=== PATIENT | female | born 1975 | race Caucasian/White ===

== ENCOUNTER 2018-03-15 00:12 | Emergency (ER) | payer OTHER ==
[~2018-03-15] VITALS: Ht 180.3 cm; Wt 70.8 kg
[~2018-03-15 00:12] MED LIST: PREDNISONE10 M2 PO
[2018-03-15 00:55] LABS: HEMATOCRIT 30.8 % (36.0-46.0); HEMOGLOBIN 9.4 G/DL (11.9-15.5); MCH 23.3 PG (29.0-34.0); MCHC 30.5 G/DL (30.0-36.0); MCV 76.4 FL (83-99); PLATELET COUNT 114 K/uL (156-360); RBC DIS.WIDTH-CV 15.1 % (11.8-14.6); RBC DIS.WIDTH-SD 41.3 % (39-53); RED BLOOD COUNT 4.03 M/uL (3.80-5.20); WHITE BLOOD COUNT 3.4 K/uL (4.1-10.2)
[2018-03-15 01:05] LABS: ALBUMIN 3.9 g/dL (3.2-4.8); CHLORIDE 106 mEq/L (99-109); SODIUM 141 mEq/L (136-147)
[2018-03-15 01:07] LABS: GLUCOSE 91 mg/dL (70-99)
[2018-03-15 01:08] LABS: TOTAL PROTEIN 6.9 g/dL (6.4-8.3)
[2018-03-15 01:09] LABS: TOTAL BILIRUBIN 0.4 mg/dL (0.0-1.0)
[2018-03-15 01:11] LABS: ALKALINE PHOSPHATASE 61 IU/L (3-129); CREATININE 0.7 mg/dL (0.6-1.3); GFR ESTIMATE (CALCULATED) > 59 mL/min/
[2018-03-15 01:12] LABS: UREA NITROGEN (BUN) 13 mg/dL (9-23)
[2018-03-15 01:13] LABS: AST (GOT) 15 IU/L (2-34)
[2018-03-15 01:14] LABS: ALT (GPT) 10 IU/L (3-49)
[2018-03-15 01:24] LABS: QUANTITATIVE HCG < 4.0 MIU/ML
[2018-03-15 03:19] LABS: MAGNESIUM 1.9 mg/dL (1.3-2.7)
[2018-03-15 03:24] LABS: PHOSPHORUS 3.1 mg/dL (2.5-4.9)
[2018-03-15] MEDS ORDERED: BONINE25 MG PO (04:42)
[2018-03-15] MEDS ORDERED: LIDOCAINE20 MG/1 M5 PO (04:42)
[2018-03-15 05:09] VITALS: BP 144/93
== END 2018-03-15 05:10 | disposition home or self-care (01) ==
LOC: EME 00:12
DX: R42 Dizziness and giddiness (principal); K20.9 Esophagitis, unspecified; K22.6 Gastro-esophageal laceration-hemorrhage syndrome; K50.90 Crohn's disease, unspecified, without complications; Z79.52 Long term (current) use of systemic steroids; Z95.9 Presence of cardiac and vascular implant and graft, unspecified; Z86.2 Personal history of diseases of the blood and blood-forming organs and certain disorders involving the immune mechanism; Z98.890 Other specified postprocedural states; Z90.49 Acquired absence of other specified parts of digestive tract
CPT/HCPCS: 71045; 80053; 81003; 83735; 84100; 84702; 85027; 99281; 99285; J2405; J7030